=== PATIENT | male | born 1960 | race Two or more races ===

== ENCOUNTER 2023-04-11 09:14 | Emergency (ER) | payer SELFPAY ==
[2023-04-11 09:30] VITALS: BP 187/103; PULSE 78; RESP 16; TEMP 36.9; O2SAT 94
--- NOTE | 2023-04-11 09:53 | ED.GENADULT ---
HPI - General Adult General Chief complaint: Extremity Pain/Injury, Upper Stated complaint: L hand swelling Time Seen by Provider: 04/11/23 09:52 History of Present Illness HPI narrative: This is a pleasant 62-year-old male presenting to the ER today with his family with concern for pain and swelling involving the dorsum of his left forearm, and the dorsum of his left hand. He has a history of chronic kidney disease, hypertension, previous stroke many years ago, and is on disability because of injuries that occurred to his right hand and forearm a few years ago. He is normally on lisinopril for his blood pressure but ran out of it last week. He has an appointment with his primary care doctor next week to get it refilled. He has not had his lisinopril since last week and has resolved blood pressures have been running higher than normal. He is not having any chest pain, trouble breathing, headache, or any other new neurologic symptoms. He recalls that he mowed his lawn on Tuesday evening. After that he went to bed. When he woke up morning he was experiencing pain on the dorsal aspect of his left forearm. This is not the elbow or the wrist but more in the midportion of the forearm. Since then the pain has gradually spread distally to involve pain and swelling down onto the dorsum of his hand. He does have pain when he tries to flex and extend his wrist and pain when he tries to pronate and supinate his forearm. However he does not notice any tenderness over the wrist. He has not had any fever. He has noticed redness and swelling the skin of the forearm and dorsum of his hand. He has been applying ice packs but it is not getting better. He has not had a fever. He is not otherwise known to be diabetic or immunosuppressed. Per his medical record does have a history of prediabetes. He does not have any known injury or fall. No recent scratch to the skin or bug bite. No other swollen areas. Related Data Home Medications Medication Instructions Recorded Confirmed acetaminophen 500 mg tablet 500 mg PO PRN 03/18/22 12/21/22 Previous Rx's Medication Instructions Recorded lisinopril 10 mg tablet 10 mg PO DAILY #90 tabs 12/21/22 cephalexin 500 mg tablet 500 mg PO QID #40 tabs 04/11/23 hydrocodone 5 mg-acetaminophen 325 1 tab PO Q4-6H PRN pain #10 tabs 04/11/23 mg tablet lisinopril 10 mg tablet 10 mg PO DAILY #14 tabs 04/11/23 Allergies Allergy/AdvReac Type Severity Reaction Status Date / Time bisacodyl Allergy Mild Rash Verified 12/21/22 08:22 losartan Allergy Mild Rash Verified 12/21/22 08:22 Pollen Allergy Unknown Uncoded 12/21/22 08:22 Review of Systems Narrative: As above otherwise negative PFSH PFSH Medical History Methicillin resistant Staphylococcus aureus culture positive (2019) ?Z22.322 - Carrier or suspected carrier of Methicillin resistant Staphylococcus aureus (ICD-10) History of gastritis (2017) ?Z87.19 - Personal history of other diseases of the digestive system (ICD-10) History of cellulitis (2019) ?Z87.2 - Personal history of diseases of the skin and subcutaneous tissue (ICD-10) Surgical History History of surgery on lower extremity ?Z98.890 - Other specified postprocedural states (ICD-10) History of umbilical hernia repair (2014) ?Z98.890 - Other specified postprocedural states (ICD-10) ?Z87.19 - Personal history of other diseases of the digestive system (ICD-10) History of total knee replacement (03/13/19) ?Z96.659 - Presence of unspecified artificial knee joint (ICD-10) History of arthroscopic knee surgery (04/03/20) ?Z98.890 - Other specified postprocedural states (ICD-10) Social History Smoking Status: Never smoker How often do you have a drink containing alcohol: never AUDIT-C Alcohol total score: 0 Little interest or pleasure in doing things: not at all Feeling down, depressed, or hopeless: not at all Exam Narrative: Exam Narrative: Constitutional: Appears well-developed and well-nourished. Alert. Conversant. He is polite. Non toxic. HENT: Head: Atraumatic. Nose: Nose normal. Mouth/Throat: Oral mucosa is clear and moist. no trismus. Eyes: Conjunctivae normal. EOM normal. Pupils equal, round, and reactive to light. No scleral icterus. Neck: Normal range of motion. Neck supple. No tracheal deviation present. Cardiovascular: Normal rate, regular rhythm. No gallop. No friction rub. No murmur heard. Symmetric radial artery pulses . Normal cap refill in the thumb in each finger of his left hand. Pulmonary/Chest: Effort normal. No stridor. No respiratory distress. No wheezes. No rales. No rhonchi . Musculoskeletal: RUE: Normal range of motion. No tenderness. No deformity LUE: Normal range of motion in his shoulder and elbow. Patient has subtle erythema and mild warmth of the skin on the dorsum of his forearm from roughly the mid forearm down to the dorsum of the hand and the knuckles. There is no fluctuance. No rash. No vesicles or pustules. He is mildly tender to palpation on the skin of the dorsal forearm. He is not tender over the wrist except for over the ulnar styloid. He does have mild tenderness over the dorsum of the hand. No definite wrist joint effusion. Wrist flexion/extension are limited to about 30? by pain. Pronation/supination limited by pain. Fingers are nontender. Palmar surface and volar surface are normal. No deformity RLE: Normal range of motion. No edema. No tenderness. No deformity LLE: Normal range of motion. No edema. No tenderness. No deformity Lymph: No cervical adenopathy. Neurological: Alert and oriented to person, place, and time. Normal strength. CN II-VII intact. No sensory deficit. GCS eye subscore is 4. GCS verbal subscore is 5. GCS motor subscore is 6. Normal coordination Skin: Skin is warm and dry. No rash noted. No pallor. Normal capillary refill. Psychiatric: Normal mood. Normal affect. Const: Vital Signs, click to edit/add: Vital Signs - 24 hr 04/11/23 09:30 04/11/23 11:21 Temperature 98.4 F Pulse Rate [Pulse Oximeter] 78 71 Respiratory Rate 16 18 Blood Pressure [Ri ght Upper Arm] 187/103 H 164/125 H Pulse Oximetry 94 95 Oxygen Delivery Me thod Room Air Room Air Course Vital Signs Vital signs: Initial Vital Signs Temperature 98.4 F 04/11/23 09:30 Temperature Source Temporal Artery Scan 08/07/23 09:30 Pulse Rate 78 04/11/23 09:30 Pulse Rhythm Regular 04/11/23 09:30 Respiratory Rate 16 04/11/23 09:30 Blood Pressure 187/103 H 04/11/23 09:30 Blood Pressure Mean 131 H 04/11/23 09:30 Blood Pressure Position Sitting 04/11/23 09:30 Pulse Oximetry 94 04/11/23 09:30 Oxygen Delivery Method Room Air 04/11/23 09:30 Vital Signs Temperature 98.4 F 04/11/23 09:30 Pulse Rate 78 04/11/23 09:30 Respiratory Rate 16 04/11/23 09:30 Blood Pressure 187/103 H 04/11/23 09:30 Pulse Oximetry 94 04/11/23 09:30 Oxygen Delivery Method Room Air 04/11/23 09:30 Temperature 98.4 F 04/11/23 09:30 Pulse Rate 71 04/11/23 11:21 Respiratory Rate 18 04/11/23 11:21 Blood Pressure 164/125 H 04/11/23 11:21 Pulse Oximetry 95 04/11/23 11:21 Oxygen Delivery Method Room Air 04/11/23 11:21 Medical Decision Making MDM Narrative Medical decision making narrative: Very pleasant 61-year-old male presenting to the ER today with concern for pain and swelling involving the dorsum of his left forearm, left hand, and less so his left wrist. Symptoms have been getting steadily worse for the past 4-5 days. He was able to mow the lawn last Tuesday without pain and swelling but since last he has had slowly increasing pain. No history of trauma but x-rays were obtained and fortunately are negative for any fracture. X-rays do not show any significant wrist joint arthritis. No evidence for any gas in the soft tissue. There is an incidental finding of a small 1 mm radiopaque foreign body on the ulnar aspect of the wrist. He does not have any redness or swelling directly over that area. Patient does not recall any recent trauma or any mechanism for getting a foreign body there lately. 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 Although I do think there is signs of a cellulitis affecting the dorsum of his forearm and hand, at this point the patient and I agree that attempts at making an incision in the wrist remove that foreign body would likely increase morbidity without improving outcome. However we discussed that if the infection is not getting better he will need to return to the ER and/or follow-up in clinic and may need to go to the OR to have foreign body removed. A I do think the patient probably has a cellulitis affecting his left forearm hand, and wrist. We will start him on antibiotics to treat that. At this point white count is reassuring. CRP mildly elevated. Vital signs are stable (even hypertensive). No sepsis physiology. Stable for outpatient antibiotics rather hospitalization. Differential would also include arthritis of the wrist joint itself, however he has less pain in the wrist than in the dorsum of the hand and the forearm. At this point I do not think he would benefit from attempted arthrocentesis of the left wrist. With redness and swelling clearly isolated to the dorsum of the hand I do not think this represents a DVT left upper extremity. No evidence for any acute limb ischemia. No rash to suggest shingles. No associated elbow pathology. Plan of care will be to initiate treatment with cephalexin 500 mg q.i.d. for 10 days. Return to the ER see physician if not dramatically improved within 48 hours, return to the ER sooner if worsening. Prescription for [place] provided. Opiate precautions reviewed. Patient verbalized her understanding. Incidentally he is hypertensive. He has a history of hypertension and ran out of his lisinopril last week. He has an appointment to see his primary care provider. He is not having any symptoms directly related to hypertension today. Laboratory workup shows mildly elevated creatinine at 2.2. Unfortunately do not have any old baseline for comparison. Patient believes this is probably chronic. We will re-initiate him on lisinopril. He will need close outpatient follow-up primary care within 1-2 weeks for blood pressure check and repeat kidney function. Lab Data Labs: Lab Results 04/11/23 Range/Units 10:48 WBC 7.68 (4.50-11.00) K/uL RBC 5.59 (4.30-5.90) m/uL Hgb 16.0 (13.5-17.5) gm/dL Hct 46.5 (37.0-53.0) % MCV 83 (80-100) fL MCH 29 (26-34) pg MCHC 34 (32-36) gm/dL RDW Coeff of Manuel 13.6 (11.5-15.5) % Plt Count 204 (140-440) K/uL Neut % (Auto) 70.8 (42.0-72.0) % Lymph % (Auto) 18.6 L (20-44) % [place] % (Auto) 7.9 (0.0-11.0) % Eos % (Auto) 2.5 (0.0-7.0) % Baso % (Auto) 0.1 (0.0-3.0) % Neut # (Auto) 5.43 (1.7-7.0) K/uL Lymph # (Auto) 1.40 (0.90-2.90) K/uL [place] # (Auto) 0.60 (0.00-0.90) K/UL Eos # (Auto) 0.19 (0.00-0.50) K/uL Baso # (Auto) 0.01 (0.00-0.30) K/uL Abs Immat Gran (auto) 0.01 (0.00-0.30) K/uL Imm/Tot Granulo (auto) 0.1 % Sodium 138 (135-149) mmol/L Potassium 3.5 L (3.6-5.1) mmol/L Chloride 107 (96-114) mmol/L Carbon Dioxide 21 (20-32) mmol/L BUN 32 H (7-30) mg/dL Creatinine 2.2 H (0.5-1.5) mg/dL Estimated GFR 33 ml/min Glucose 163 H (60-115) mg/dL Calcium 9.0 (8.4-10.6) mg/dL C-Reactive Protein 3.2 H (0.5-1.0) mg/dL Imaging Data wrist xray: Radiologist's impression: Findings: No fracture or carpal malalignment. Small linear radiodensity in the ulnar soft tissues measuring 1.2 millimeters. No soft tissue gas. Mild spurring at the triscaphe joint. Soft tissue swelling about the carpus noted. Impression: Soft tissue swelling, possible joint effusion. No fracture. 1.2 millimeter radiodensity in the ulnar soft tissues. Discharge Plan Discharge Clinical Impression: Chronic renal insufficiency, Hypertension Cellulitis Qualifiers: Site of cellulitis: extremity Site of cellulitis of extremity: upper extremity Laterality: left Qualified Code(s): L03.114 - Cellulitis of left upper limb Patient Disposition: Home, Self-Care Condition: Stable Instructions: Cellulitis (ED), Chronic Hypertension (DC) Additional Instructions: As we discussed, please start taking the antibiotics for the redness and swelling of your left forearm and hand. If you continue to get worse, or if her infection is not dramatically improved within 48 hours, please come back to the ER or see her doctor right away. If you have worsening infection such as spreading redness, worsening swelling, worsening pain, high fevers, come back to the ER right away. Your blood pressure is too high. Please refill and restart your blood pressure medication. Recheck with your regular doctor within the next 1-2 weeks. Ask your doctor to recheck your kidney function. Today your creatinine level (a measure of your kidney function) is higher than. The number is 2.2. Activity Detail: Please avoid lifting or grabbing with her left hand. Prescriptions: New lisinopril 10 mg tablet 10 mg PO DAILY Qty: 14 0RF hydrocodone-acetaminophen 5-325 mg tablet 1 tab PO Q4-6H PRN (Reason: pain) Qty: 10 0RF Rx Instructions: Caution-causes drowsiness. Do not drive. cephalexin 500 mg tablet 500 mg PO QID Qty: 40 0RF No Action lisinopril 10 mg tablet 10 mg PO DAILY Qty: 90 3RF acetaminophen 500 mg tablet 500 mg PO PRN Follow Up/Referrals: Afua Deluca MD [Primary Care Provider] - Stand Alone Forms: [employer] Info Instructions
--- NOTE | 2023-04-11 10:09 | CRLHL7_ITS ---
For Patients: As a result of the Century Cures Act, medical imaging exams and procedure reports are released immediately into your electronic medical record. You may view this report before your referring provider. If you have questions, please contact your health care provider. Indication: LT Wrist Pain, swelling, slightly red and warm Technique: Three views left wrist Comparison: None Findings: No fracture or carpal malalignment. Small linear radiodensity in the ulnar soft tissues measuring 1.2 millimeters. No soft tissue gas. Mild spurring at the triscaphe joint. Soft tissue swelling about the carpus noted. Impression: Soft tissue swelling, possible joint effusion. No fracture. 1.2 millimeter radiodensity in the ulnar soft tissues. Dictated by Tim Ngo MD @ 04/11/2023 11:28:42 AM (Electronically Signed)
[2023-04-11 10:58] LABS: Basophils Absolute Auto 0.01 K/uL (0.00-0.30); Basophils Percent Auto 0.1 % (0.0-3.0); Eosinophils Absolute Auto 0.19 K/uL (0.00-0.50); Eosinophils Percent Auto 2.5 % (0.0-7.0); Hematocrit 46.5 % (37.0-53.0); Immature Granulocytes Abs Auto 0.01 K/uL (0.00-0.30); Immature Granulocytes Pct Auto 0.1 %; Lymphocytes Percent Auto 18.6 % (20-44); Mean Corpuscular HGB Conc 34 gm/dL (32-36); Mean Corpuscular Hemoglobin 29 pg (26-34); Mean Corpuscular Volume 83 fL (80-100); Monocytes Percent Auto 7.9 % (0.0-11.0); Neutrophils Absolute Auto 5.43 K/uL (1.7-7.0); Neutrophils Percent Auto 70.8 % (42.0-72.0); Platelet Count* 204 K/uL (140-440); RDW Coefficient of Variation % 13.6 % (11.5-15.5); Red Blood Count 5.59 m/uL (4.30-5.90); White Blood Count* 7.68 K/uL (4.50-11.00)
[2023-04-11 11:00] LABS: Slide Review Reflex No
[2023-04-11 11:20] LABS: Chloride* 107 mmol/L (96-114); Potassium* 3.5 mmol/L (3.6-5.1); Sodium* 138 mmol/L (135-149)
[2023-04-11 11:21] VITALS: BP 164/125; PULSE 71; RESP 18; O2SAT 95
[2023-04-11 11:22] LABS: Creatinine* 2.2 mg/dL (0.5-1.5); Estimated Glomerular Filt Rate 33 ml/min
[2023-04-11 11:23] LABS: Blood Urea Nitrogen* 32 mg/dL (7-30); Carbon Dioxide* 21 mmol/L (20-32); Glucose* 163 mg/dL (60-115)
[2023-04-11 11:26] LABS: C Reactive Protein* 3.2 mg/dL (0.5-1.0)
--- NOTE | 2023-04-11 17:39 | ED.NURSE ---
patient returned as not all medications where not sent electronically and looks as if the [place] was rejected. Dr. Marie wrote a hard copy to give to the patient. Patient informed of calling [facility] to confirm medications sent and being filled. Patient is c/o increased swelling in the hand and given a sling instructed on elevating the hand when sitting and to wiggle the fingers around. patient was happy with this and left to get medications.
== END 2023-04-11 12:29 | disposition home or self-care (01) ==
PROVIDERS: Emergency Provider Emergency Medicine; PCP Internal Medicine
DX: L03.114 Cellulitis of left upper limb (principal); N18.9 Chronic kidney disease, unspecified; I10 Essential (primary) hypertension
CPT/HCPCS: 36415; 73110; 80048; 85025; 86140; 99284